=== PATIENT | female | born 1960 | race American Indian/Alaskan Native ===

== ENCOUNTER 2019-04-04 07:05 | Day surgery (SDC) | payer OTHER ==
[~2019-04-04 07:05] MED LIST: NACL 0.9% 1000 ML 1,000 ML IV SCH
--- NOTE | 2019-04-04 07:31 | Anesthesia Day of Surgery ---
Anesthesia Day of Surgery - Day of Surgery Patient Examined: Yes Patient H&P Reviewed: Yes Patient is NPO: Yes
--- NOTE | 2019-04-04 07:31 | Anesthesia Consultation ---
Anesthesia Consult and Med Hx Date of service: 04/04/19 - Airway Anesthetic Teeth Evaluation: Partials ROM Head & Neck: Adequate Mental/Hyoid Distance: Adequate Mallampati Class: Class II Intubation Access Assessment: Probably Good - Pre-Operative Health Status ASA Pre-Surgery Classification: ASA2 Proposed Anesthetic Plan: MAC - Pulmonary Hx Smoking: Yes (3-4 cig/day x 35 years) - Cardiovascular System Hx Hypertension: Yes - Gastrointestinal Hx Gastroesophageal Reflux Disease: No (dyspepcia) - Endocrine Hx Insulin Dependent Diabetes: Yes
[2019-04-04] MEDS ORDERED: WATER FOR IRRIG STERILE IR ONE (07:36)
[2019-04-04] MEDS ORDERED: WATER FOR IRRIG STERILE ONE (07:36)
[2019-04-04] MEDS ORDERED: DIPRIVAN 10 MG/ML IV ONE ×2 (08:04→08:05)
[2019-04-04] MEDS ORDERED: XYLOCAINE 2% INFILTRATI ONE (08:08)
--- NOTE | 2019-04-04 08:39 | Operative Report ---
Operative Report Operative Report: DOS: 04/04/19 SURGEON: Rommel Mesa MD EGD with biopsy REPORT PREOPERATIVE DIAGNOSIS and POSTOPERATIVE DIAGNOSIS: epigastric abdominal pain ESTIMATED BLOOD LOSS: minimal DESCRIPTION OF PROCEDURE: A high-resolution EGD scope was passed through the oropharynx, esophagus, stomach, and second portion of duodenum. The scope was carefully withdrawn. Retroflexion was performed in the stomach. At the end of the procedure, the scope was cleaned using normal technique. Vital signs monitored continuously throughout. SEDATION: Provided by [facility]. COMPLICATIONS: None. FINDINGS: * Normal duodenum, Biopsies were taken to rule out celiac disease. A total of 6 biopsies were taken, the first from the duodenal bulb, with each subsequent biopsies progressively distal with the last biopsy as distal as could be reached with the endoscope * Minimal gastritis of the gastric antrum and body, Biopsies were taken to rule out H. Pylori infection. A total of 5 biopsies were taken, 2 from the antrum, 1 from the incisura, 2 from the body. * Small 1cm hiatal hernia * Z line regular at 38cm from the incisors * Exam otherwise normal RECOMMENDATIONS: * f/u path results * return to clinic 2-4 weeks for followup CC note to PCP Dr. Irineo Gleason Jr., M.D.
--- NOTE | 2019-04-04 08:40 | Operative Report ---
Operative Report Operative Report: DOS: 04/04/19 SURGEON: Rommel Mesa MD COLONOSCOPY REPORT PREOPERATIVE AND POSTOPERATIVE DIAGNOSIS: screening colonoscopy DESCRIPTION OF PROCEDURE: The colonoscope was passed to the cecum as identified by the ileocecal valve and appendiceal orifice. Scope was carefully withdrawn. Retroflexion was performed in the rectum. At the end of procedure, the scope was cleaned using normal technique. Vital signs monitored continuously throughout. SEDATION: Provided by [facility]. Quality of the prep was good COMPLICATIONS: None. ESTIMATED BLOOD LOSS: none FINDINGS: * Normal colonoscopy RECOMMENDATIONS: * Repeat colonoscopy in 10 years for screening CC note to PCP Dr. Irineo Gleason Jr., M.D.
[2019-04-04 08:51] VITALS: BP 150/81
== END 2019-04-04 07:06 | disposition home or self-care (01) ==
LOC: GIO 07:05
PROVIDERS: ATTEND Student in an Organized Health Care Education/Training Program
DX: Z12.11 Encounter for screening for malignant neoplasm of colon (principal); K29.70 Gastritis, unspecified, without bleeding; K44.9 Diaphragmatic hernia without obstruction or gangrene; K31.89 Other diseases of stomach and duodenum; I10 Essential (primary) hypertension; K21.9 Gastro-esophageal reflux disease without esophagitis; E11.9 Type 2 diabetes mellitus without complications; F17.210 Nicotine dependence, cigarettes, uncomplicated; Z79.899 Other long term (current) drug therapy; Z98.51 Tubal ligation status; Z98.890 Other specified postprocedural states
CPT/HCPCS: 43239; 45378; 88305; 88342; J2704; J7030